=== PATIENT | male | born 1960 | race Two or more races ===

== ENCOUNTER 2016-07-31 18:01 | Emergency (ER) | payer OTHER ==
[~2016-07-31] VITALS: Ht 162.6 cm; Wt 59.0 kg
[2016-07-31 18:07] VITALS: BP 144/82
[2016-07-31] MEDS ORDERED: IBUPROFEN 600 MG TAB PO ONE (21:00)
== END 2016-07-31 21:03 | disposition home or self-care (01) ==
LOC: EDBD 18:01 → ER 18:05
DX: S01.312A Laceration without foreign body of left ear, initial encounter (principal); S20.212A Contusion of left front wall of thorax, initial encounter; F17.210 Nicotine dependence, cigarettes, uncomplicated; F12.10 Cannabis abuse, uncomplicated; Y08.89XA Assault by other specified means, initial encounter; Y93.89 Activity, other specified; Y99.8 Other external cause status; Y92.098 Other place in other non-institutional residence as the place of occurrence of the external cause
CPT/HCPCS: 12013; 70450; 71101

== ENCOUNTER 2018-01-20 17:49 | Emergency (ER) | payer OTHER ==
[~2018-01-20] VITALS: Ht 162.6 cm; Wt 57.6 kg
[2018-01-20 18:03] VITALS: BP 141/94
[2018-01-20] MEDS ORDERED: HYDROcodone-ACET 5/325MG TAB PO ONE (19:15)
[2018-01-20] MEDS ORDERED: KETOROLAC TROMETH 60MG/2ML VIAL IM ONE (19:15)
== END 2018-01-20 19:32 | disposition home or self-care (01) ==
LOC: ER 17:55
DX: S42.021A Displaced fracture of shaft of right clavicle, initial encounter for closed fracture (principal); E11.9 Type 2 diabetes mellitus without complications; Z90.89 Acquired absence of other organs; F17.210 Nicotine dependence, cigarettes, uncomplicated; F12.10 Cannabis abuse, uncomplicated; W01.0XXA Fall on same level from slipping, tripping and stumbling without subsequent striking against object, initial encounter; Y93.89 Activity, other specified; Y99.8 Other external cause status; Y92.89 Other specified places as the place of occurrence of the external cause
CPT/HCPCS: 73030; 93005; 96372; 99284; J1885

== ENCOUNTER 2018-07-13 03:37 | Emergency (ER) | payer MEDICAID, OTHER ==
[~2018-07-13] VITALS: Ht 162.6 cm; Wt 57.6 kg
[2018-07-13 04:17] VITALS: BP 134/84
[2018-07-13 06:59] LABS: Basophils # (auto) 0 uL; Basophils % (auto) 0.6 % (0.0-2.0); Eosinophils # (auto) 0.2 uL; Eosinophils % (auto) 2.7 % (0.0-7.0); Hematocrit 43.2 % (41.0-53.0); Hemoglobin 14.8 g/dL (13.5-17.5); Lymphocytes # (auto) 1.3 uL; Lymphocytes % (auto) 14.4 % (10.0-50.0); Mean Corpuscular Hgb Conc. 34.2 g/dL (32.0-36.0); Mean Corpuscular Volume 93.5 fL (80.0-100.0); Monocytes # (auto) 0.8 uL; Monocytes % (auto) 9.2 % (0.0-12.0); Neutrophils # (auto) 6.4 uL; Neutrophils % (auto) 73.1 % (37.0-80.0); Platelet Count (auto) 194 10^3/uL (140-450); Red Blood Cells 4.62 10^6/uL (4.5-5.90); Red Cell Distribution Width 13.5 % (11.8-14.3); White Blood Cell 8.8 10^3/uL (4.4-10.8)
[2018-07-13 07:11] LABS: Potassium 4.2 mmol/L (3.5-5.1)
[2018-07-13 07:12] LABS: Uric Acid 3.9 mg/dL (3.5-7.2)
[2018-07-13 07:18] LABS: Albumin 3.7 g/dL (3.4-5.0); BUN/Creatinine Ratio 8.5; Bilirubin, Total 0.6 mg/dL (0.2-1.0); Calcium 8.9 mg/dL (8.5-10.1); Total Protein 7.2 g/dL (6.4-8.2)
== END 2018-07-13 06:38 | disposition home or self-care (01) ==
LOC: ER 03:39
DX: J06.9 Acute upper respiratory infection, unspecified (principal); E11.9 Type 2 diabetes mellitus without complications; F17.210 Nicotine dependence, cigarettes, uncomplicated
CPT/HCPCS: 36415; 80053; 83615; 84550; 85025; 85652; 86431

== ENCOUNTER 2020-01-13 09:36 | Emergency (ER) | payer MEDICAID ==
[~2020-01-13] VITALS: Ht 162.6 cm; Wt 57.6 kg
[2020-01-13 09:39] VITALS: BP 130/82
[2020-01-13] MEDS ORDERED: LORazepam 0.5 MG TAB PO ONE (09:45)
== END 2020-01-13 10:52 | disposition home or self-care (01) ==
LOC: ER 09:36
DX: F41.9 Anxiety disorder, unspecified (principal); R06.02 Shortness of breath; E11.9 Type 2 diabetes mellitus without complications
CPT/HCPCS: 71045

== ENCOUNTER 2022-01-03 09:41 | Emergency (ER) | payer MEDICAID ==
[~2022-01-03] VITALS: Ht 167.6 cm; Wt 63.5 kg
[2022-01-03 09:54] VITALS: BP 166/89
== END 2022-01-03 10:14 | disposition left against medical advice (07) ==
LOC: EDUNIT# 09:41 → EDBD 09:41 → ER 09:41
DX: R07.89 Other chest pain (principal); R20.2 Paresthesia of skin; Z53.21 Procedure and treatment not carried out due to patient leaving prior to being seen by health care provider
CPT/HCPCS: 93005